=== PATIENT | male | born 1960 | race Caucasian/White ===

== ENCOUNTER 2018-01-15 14:26 | Inpatient (IN) | payer BC, SELFPAY ==
[2018-01-15] VITALS (9 sets, daily range): BP systolic 135–159; BP diastolic 87–97; PULSE 82–100; RESP 16–31; TEMP 36.8–38.9; O2SAT 97–100; BMI 32.5
--- NOTE | 2018-01-15 15:38 | DI.US.S_ITS ---
PROCEDURE: US PERIPH VENOUS LOW EXTREM LT INDICATIONS: swelling, hx of infections, large lymph node groin TECHNIQUE: Real-time imaging, as well as color and pulse Doppler interrogation, were performed of the lower extremity deep veins from the inguinal ligament to the popliteal fossa. COMPARISON: None. FINDINGS: The deep veins are normally compressible, and free of intraluminal thrombus. Color and pulse Doppler demonstrate normal phasic intraluminal flow. There is normal augmentation response to distal compression maneuver. IMPRESSION: Negative for deep venous thrombosis. Dictated by: Elmer Lay M.D. on 01/15/2018 at 16:00 Approved by: Elmer Lay M.D. on 01/15/2018 at 16:00
--- NOTE | 2018-01-15 15:41 | DI.RAD.S_ITS ---
PROCEDURE: XR CHEST 1V INDICATIONS: fever, chills, leg swelling TECHNIQUE: One view of the chest was acquired. COMPARISON: None. FINDINGS: Surgical changes and devices: None. Lungs and pleura: No pleural effusions or pneumothorax. Lungs are clear. Mediastinum: Mediastinal contours appear normal. Heart size is normal. A moderate hiatal hernia can be seen. Bones and chest wall: No suspicious bony lesions. Age-appropriate bony degenerative changes are seen. Overlying soft tissues appear unremarkable. IMPRESSION: No focal infiltrates can be seen. Moderate hiatal hernia incidentally noted. Dictated by: Elmer Lay M.D. on 01/15/2018 at 15:04 Approved by: Elmer Lay M.D. on 01/15/2018 at 15:04
--- NOTE | 2018-01-15 15:41 | ED.EXTPRO ---
HPI - Extremity Problem <Elise Gruber, - Last Filed: 01/16/18 21:21> General Chief complaint: Extremity Problem,Nontraumatic Stated complaint: has Mykel, alessandra complaints Time Seen by Provider: 01/15/18 15:31 Source: patient Mode of arrival: ambulatory Limitations: no limitations History of Present Illness HPI Narrative: This is a 58-year-old male comes to the emergency department with complaint of left lower extremity pain as well as enlarged nodes or bumps in the groin. Patient states he has had chronic swelling in the left leg. He states it is not worse than it normally is but he has been having some redness in the thigh. Patient states that he been having chills and feeling feverish for the last 2 or 3 days. He states he has been shaking in bed. He also has had hiccups for the last 3 days. They are better right now. He does not feel short of breath currently. He did feel short of breath when he was hiccuping all of the time. He has not been vomiting except he has been assisting himself to vomit to try to stop the hiccups about having his finger into his throat. Patient denies any abdominal pain but has had some diarrhea. He has not had any urinary symptoms. He has had similar symptoms in the past and states that he was told he had an infection in his blood before. He states he has had IV antibiotics in the past for these issues. He states typically it was cracks in his feet that would lead infection into his leg. States he has been told he does not very good blood flow in his leg. He takes medication for blood pressure on cleaning lisinopril and hydrochlorothiazide as well as atorvastatin. He denies any other medications. He has had his tonsils out but no other surgeries. He denies any allergies to medications. He does drink about a bottle of wine daily. And describes having prior hiccuping issues when he went on ?a [place]? patient divides his time between here and [place]. Related Data Home Medications Medication Instructions Recorded Confirmed atorvastatin 40 mg PO DAILY 01/15/18 01/15/18 cephalexin 1 dose PO QID 01/15/18 01/15/18 lisinopril 5 mg PO DAILY 01/15/18 01/15/18 Previous Rx's Medication Instructions Recorded hydrochlorothiazide 25 mg tablet 25 mg PO DAILY #60 tab 10/02/17 Allergies Allergy/AdvReac Type Severity Reaction Status Date / Time No Known Drug Allergies Allergy Verified 01/15/18 14:35 Review of Systems <Elise Gruber DO - Last Filed: 01/16/18 21:21> Review of Systems All systems reviewed & are unremarkable except as noted in HPI and below Constitutional Reports body ache(s), Reports chills, Reports fever(s) and Reports malaise Cardiovascular Denies chest pain, Reports diaphoresis, Reports edema (Both legs greater than left), Denies irregular heart rhythm, Denies lightheadedness, Denies palpitations, Denies dyspnea, Denies dyspnea on exertion and Denies orthopnea Respiratory Denies chest congestion, Denies cough, Denies dyspnea, Denies dyspnea on exertion, Denies wheezing and Reports other (Hiccups) Gastrointestinal Gastrointestinal: Denies abdominal pain, Denies change in bowel habits, Denies constipation, Reports diarrhea, Denies nausea and Denies vomiting Genitourinary Denies hematuria, Denies flank pain, Denies urinary incontinence and Denies urinary urgency Musculoskeletal Reports as per HPI, Denies joint swelling, Denies muscle cramps, Denies muscle weakness, Denies numbness, Denies tingling and Reports other (Enlarged lumps in left groin) Neurologic Denies numbness and Denies tingling Endocrine Denies palpitations Hematologic/Lymphatic Reports lymphadenopathy Allergic/Immunologic Denies wheezing Exam <Elise Gruber DO - Last Filed: 01/16/18 21:21> Narrative Exam Narrative: GENERAL: Alert and oriented x three, well-nourished male in moderate distress. Patient feels warm to the touch. HEENT: Head normocephalic, atraumatic, EOMI, pupils reactive, face symmetric, moist mucous membranes NECK: Supple, full range of motion CARDIOVASCULAR: Regular rate and rhythm without murmurs, rubs or gallops. RESPIRATORY: Breath sounds equal bilaterally, no wheezes rales or rhonchi. ABDOMEN: Soft, nontender. Normoactive bowel sounds all 4 quadrants. No guarding or rebound, rigidity, no mass : No CVA tenderness EXTREMITIES: Normal range of motion, no clubbing. Patient has left inguinal lymphadenopathy, it is nonfluctuant and nontender but I am able to palpate very easily large node greater than a cm. Patient also has swelling in the left lower extremity, it is nonpitting edema. He has erythema in the right groin and extending towards the lower leg. Patient what appear to be some chronic venous stasis changes of both lower extremities. His cap refill is less than 2 sec in both lower extremities. Patient has sensation to touch. He has full range of motion. Neurovascularly intact. Patient has no obvious cuts or lacerations but does have thickened hyperkeratotic changes between his toes and on his feet. NEUROLOGICAL: Cranial nerves II through XII grossly intact. Moving all extremities SKIN: Warm, dry, no petechiae, Initial Vital Signs Initial Vital Signs: Vital Signs Temperature 98.2 F 01/15/18 14:35 Pulse Rate 95 H 01/15/18 14:35 Respiratory Rate 18 01/15/18 14:35 Blood Pressure 137/91 H 01/15/18 14:35 Pulse Oximetry 100 01/15/18 14:35 <James Duron MD - Last Filed: 01/15/18 22:48> Initial Vital Signs Initial Vital Signs: Vital Signs Temperature 98.2 F 01/15/18 14:35 Pulse Rate 95 H 01/15/18 14:35 Respiratory Rate 18 01/15/18 14:35 Blood Pressure 137/91 H 01/15/18 14:35 Pulse Oximetry 100 01/15/18 14:35 Course <Elise Gruber DO - Last Filed: 01/16/18 21:21> Orders Ordered: ED Orders 01/17/18 05:30 Vancomycin Trough Urgent Acetaminophen (Tylenol) 650 mg PO Q6HR PRN PRN Reason: As Needed for Fever/Mild Pain Hydrocodone Bitart/Acetaminophen ([place] 5/325) 1 tab PO Q4HR PRN PRN Reason: Pain, Moderate (4-6) Al Hydrox/Mg Hydrox/Simethicone (Maalox Plus) 30 ml PO Q6HR PRN PRN Reason: Dyspepsia Last Admin: 01/16/18 08:13 Dose: 30 ml Admin: 01/15/18 21:04 Dose: 30 ml Atorvastatin Calcium (Lipitor) 40 mg PO DAILY [facility] Last Admin: 01/16/18 09:37 Dose: 40 mg Baclofen (Lioresal) 10 mg PO TID PRN PRN Reason: hiccups Last Admin: 01/16/18 20:30 Dose: 10 mg Admin: 01/16/18 12:45 Dose: 10 mg Enoxaparin Sodium (Lovenox) 40 mg SUBCUT DAILY [facility] Last Admin: 01/16/18 09:39 Dose: 40 mg Hydrochlorothiazide (Hydrochlorothiazide) 25 mg PO DAILY [facility] Last Admin: 01/16/18 09:42 Dose: 25 mg Vancomycin HCl 1,250 mg/ (Sodium Chloride) 250 mls @ 250 mls/hr IV Q12H [facility] Last Infusion: 01/16/18 19:10 Dose: 250 mls/hr Admin: 01/16/18 18:00 Dose: 250 mls/hr Infusion: 01/16/18 07:29 Dose: 0 mls/hr Admin: 01/16/18 05:31 Dose: 250 mls/hr Lisinopril (Zestril) 5 mg PO DAILY [facility] Last Admin: 01/16/18 09:46 Dose: 5 mg Ondansetron HCl (Zofran) 4 mg IV Q8HR PRN PRN Reason: Nausea And Vomiting Pot[facility] Admin: 01/16/18 09:37 Dose: 20 meq Ranitidine HCl (Zantac) 150 mg PO BID [facility] Last Admin: 01/16/18 20:30 Dose: 150 mg Admin: 01/16/18 12:45 Dose: 150 mg Sodium Chloride (Normal Saline 0.9% Flush) 10 ml IV BID [facility] Last Admin: 01/16/18 20:30 Dose: 10 ml Vancomycin HCl (Vancomycin Trough) 1 request MISC NOW ONE Stop: 01/17/18 05:31 Discontinued Medications Acetaminophen (Tylenol) 975 mg PO NOW ONE Stop: 01/15/18 19:07 Last Admin: 01/15/18 19:07 Dose: 975 mg Acetaminophen (Tylenol) 650 mg PO Q6HR PRN PRN Reason: As Needed for Fever/Mild Pain Piperacillin/Tazobactam/Dextrose (Zosyn) 4.5 gm in 100 mls @ 200 mls/hr IV NOW ONE Stop: 01/15/18 16:07 Last Infusion: 01/15/18 17:15 Dose: 0 mls/hr Admin: 01/15/18 16:45 Dose: 200 mls/hr Sodium Chloride (Normal Saline 0.9%) 2,993.7 mls @ 997.9 mls/hr 30 ml/kg infuse over 3 hr (2993.7 ml) IV CONT [facility] Last Infusion: 01/15/18 20:03 Dose: 0 mls/hr Infusion: 01/15/18 19:02 Dose: 997 mls/hr Infusion: 01/15/18 17:52 Dose: 997 mls/hr Admin: 01/15/18 16:45 Dose: 997 mls/hr Vancomycin HCl 1,500 mg/ (Sodium Chloride) 500 mls @ 333.333 mls/hr IV NOW ONE Stop: 01/15/18 17:01 Last Infusion: 01/15/18 20:06 Dose: 0 mls/hr Admin: 01/15/18 17:51 Dose: 333.333 mls/hr Piperacillin/Tazobactam/Dextrose (Zosyn) 3.375 gm in 50 mls @ 100 mls/hr IV NOW ONE Stop: 01/15/18 20:27 Last Admin: 01/15/18 20:30 Dose: Sodium Chloride (Normal Saline 0.9%) 1,000 mls @ 125 mls/hr IV CONT [facility] Last Admin: 01/15/18 22:32 Dose: Sodium Chloride (Normal Saline 0.9%) 1,000 mls @ 100 mls/hr IV CONT [facility] Last Admin: 01/16/18 08:17 Dose: 100 mls/hr Infusion: 01/16/18 06:45 Dose: 100 mls/hr Admin: 01/15/18 20:45 Dose: 100 mls/hr Influenza Virus Vaccine (Flu Vaccine) 0.5 ml IM .ONCE ONE Stop: 01/15/18 21:02 Last Admin: 01/15/18 21:21 Dose: Lorazepam (Ativan) 1 mg IV NOW ONE Stop: 01/15/18 18:11 Last Admin: 01/15/18 18:10 Dose: 1 mg Vancomycin HCl (Vancomycin Per Pharmacy) 1 request MISC NOW ONE Stop: 01/15/18 19:59 Last Admin: 01/15/18 20:45 Dose: 1 request Vital Signs - 8 hr 01/16/18 15:54 01/16/18 17:35 01/16/18 19:20 Temperature 99.2 F 99.2 F Pulse Rate 81 83 Respiratory Rate 18 18 Blood Pressure 142/83 H 144/87 H Pulse Oximetry 99 99 100 <James Duron MD - Last Filed: 01/15/18 22:48> Course Narrative: 18:10. 01/15/2018. The patient was initially evaluated by Dr. Gruber. I have accepted the patient in transition at change of shift. The patient presents with 2 days of fever, rigors and chills. He has erythema and discomfort to the left leg and left groin. He has a prior history of cellulitis. He is medicated for hyperlipidemia and hypertension. He denies having a primary care physician, telling me he uses [facility]. He likely has a significant history of alcohol consumption. He has a history of recurrent left leg cellulitis. Dr. Gruber has started him on Zosyn and Vancomycin for cellulitis of the left lower extremity. It is noted that he has an elevated WBC count, and elevated lactate, and a elevated procalcitonin. He has received IV fluid boluses, he remains normotensive. A repeat lactate has been ordered. Decision to Admit Date: 01/15/18 Decision to Admit time: 19:41 Orders Ordered: ED Orders 01/17/18 05:30 Vancomycin Trough Urgent Acetaminophen (Tylenol) 650 mg PO Q6HR PRN PRN Reason: As Needed for Fever/Mild Pain Hydrocodone Bitart/Acetaminophen ([place] 5/325) 1 tab PO Q4HR PRN PRN Reason: Pain, Moderate (4-6) Al Hydrox/Mg Hydrox/Simethicone (Maalox Plus) 30 ml PO Q6HR PRN PRN Reason: Dyspepsia Last Admin: 01/16/18 08:13 Dose: 30 ml Admin: 01/15/18 21:04 Dose: 30 ml Atorvastatin Calcium (Lipitor) 40 mg PO DAILY [facility] Last Admin: 01/16/18 09:37 Dose: 40 mg Baclofen (Lioresal) 10 mg PO TID PRN PRN Reason: hiccups Last Admin: 01/16/18 20:30 Dose: 10 mg Admin: 01/16/18 12:45 Dose: 10 mg Enoxaparin Sodium (Lovenox) 40 mg SUBCUT DAILY [facility] Last Admin: 01/16/18 09:39 Dose: 40 mg Hydrochlorothiazide (Hydrochlorothiazide) 25 mg PO DAILY [facility] Last Admin: 01/16/18 09:42 Dose: 25 mg Vancomycin HCl 1,250 mg/ (Sodium Chloride) 250 mls @ 250 mls/hr IV Q12H [facility] Last Infusion: 01/16/18 19:10 Dose: 250 mls/hr Admin: 01/16/18 18:00 Dose: 250 mls/hr Infusion: 01/16/18 07:29 Dose: 0 mls/hr Admin: 01/16/18 05:31 Dose: 250 mls/hr Lisinopril (Zestril) 5 mg PO DAILY [facility] Last Admin: 01/16/18 09:46 Dose: 5 mg Ondansetron HCl (Zofran) 4 mg IV Q8HR PRN PRN Reason: Nausea And Vomiting Potassium Chloride (Klor-Con M20) 20 meq PO DAILYCC [facility] Last Admin: 01/16/18 09:37 Dose: 20 meq Ranitidine HCl (Zantac) 150 mg PO BID [facility] Last Admin: 01/16/18 20:30 Dose: 150 mg Admin: 01/16/18 12:45 Dose: 150 mg Sodium Chloride (Normal Saline 0.9% Flush) 10 ml IV BID [facility] Last Admin: 01/16/18 20:30 Dose: 10 ml Vancomycin HCl (Vancomycin Trough) 1 request MISC NOW ONE Stop: 01/17/18 05:31 Discontinued Medications Acetaminophen (Tylenol) 975 mg PO NOW ONE Stop: 01/15/18 19:07 Last Admin: 01/15/18 19:07 Dose: 975 mg Acetaminophen (Tylenol) 650 mg PO Q6HR PRN PRN Reason: As Needed for Fever/Mild Pain Piperacillin/Tazobactam/Dextrose (Zosyn) 4.5 gm in 100 mls @ 200 mls/hr IV NOW ONE Stop: 01/15/18 16:07 Last Infusion: 01/15/18 17:15 Dose: 0 mls/hr Admin: 01/15/18 16:45 Dose: 200 mls/hr Sodium Chloride (Normal Saline 0.9%) 2,993.7 mls @ 997.9 mls/hr 30 ml/kg infuse over 3 hr (2993.7 ml) IV CONT [facility] Last Infusion: 01/15/18 20:03 Dose: 0 mls/hr Infusion: 01/15/18 19:02 Dose: 997 mls/hr Infusion: 01/15/18 17:52 Dose: 997 mls/hr Admin: 01/15/18 16:45 Dose: 997 mls/hr Vancomycin HCl 1,500 mg/ (Sodium Chloride) 500 mls @ 333.333 mls/hr IV NOW ONE Stop: 01/15/18 17:01 Last Infusion: 01/15/18 20:06 Dose: 0 mls/hr Admin: 01/15/18 17:51 Dose: 333.333 mls/hr Piperacillin/Tazobactam/Dextrose (Zosyn) 3.375 gm in 50 mls @ 100 mls/hr IV NOW ONE Stop: 01/15/18 20:27 Last Admin: 01/15/18 20:30 Dose: Sodium Chloride (Normal Saline 0.9%) 1,000 mls @ 125 mls/hr IV CONT [facility] Last Admin: 01/15/18 22:32 Dose: Sodium Chloride (Normal Saline 0.9%) 1,000 mls @ 100 mls/hr IV CONT [facility] Last Admin: 01/16/18 08:17 Dose: 100 mls/hr Infusion: 01/16/18 06:45 Dose: 100 mls/hr Admin: 01/15/18 20:45 Dose: 100 mls/hr Influenza Virus Vaccine (Flu Vaccine) 0.5 ml IM .ONCE ONE Stop: 01/15/18 21:02 Last Admin: 01/15/18 21:21 Dose: Lorazepam (Ativan) 1 mg IV NOW ONE Stop: 01/15/18 18:11 Last Admin: 01/15/18 18:10 Dose: 1 mg Vancomycin HCl (Vancomycin Per Pharmacy) 1 request MISC NOW ONE Stop: 01/15/18 19:59 Last Admin: 01/15/18 20:45 Dose: 1 request Vital Signs - 8 hr 01/16/18 15:54 01/16/18 17:35 01/16/18 19:20 Temperature 99.2 F 99.2 F Pulse Rate 81 83 Respiratory Rate 18 18 Blood Pressure 142/83 H 144/87 H Pulse Oximetry 99 99 100 MDM - Extremity (Nontraumatic) <Elise Gruber, DO - Last Filed: 01/16/18 21:21> Lab Data Attestation: I reviewed the patient's lab results. Result diagrams: 01/16/18 05:30 01/16/18 05:30 Lab Results 01/15/18 01/15/18 01/15/18 Range/Units 16:10 16:10 16:10 WBC 14.4 H (4.5-11.0) X10^3/uL RBC 4.61 (4.5-5.9) X10^6/uL Hgb 15.4 (13.5-17.5) g/dL Hct 43.4 (41-53) % MCV 94.1 (80-100) fL MCH 33.4 (26-34) PG MCHC 35.5 (30-36) % RDW 12.2 (11.6-14.8) % Plt Count 204 (150-400) X10^3/uL Neut % (Auto) 89.3 H (50-75) % Lymph % (Auto) 5.2 L (25-40) % [place] % (Auto) 4.8 (3-14) % Eos % (Auto) 0.3 L (2-4) % Baso % (Auto) 0.4 (0-2) % Neut # (Auto) 44817 H (9958-3247) /uL PT 14.3 H (10.1-12.7) SECONDS INR 1.3 (0.9-1.3) APTT 33 (26.4-36.2) SECONDS Sodium (137-145) mmol/L Potassium (3.4-5.1) mmol/L Chloride (98-107) mmol/L Carbon Dioxide (22-32) mmol/L BUN (9-20) mg/dL Creatinine (0.66-1.25) mg/dL Estimated GFR (>60) mL/min BUN/Creatinine Ratio (6-22) Glucose (70-100) mg/dL Lactate (0.7-2.1) mmol/L Calcium (8.4-10.2) mg/dL Total Bilirubin (0.2-1.3) mg/dL AST (17-59) IU/L ALT (21-72) IU/L Alkaline Phosphatase (38-126) U/L Total Protein (6.3-8.2) g/dL Albumin (3.5-5.0) g/dL Globulin (1.7-4.1) g/dL Albumin/Globulin Ratio (1.0-2.8) Procalcitonin 39.72 H (<0.5) ng/mL Urine RBC (0-5/HPF) Urine WBC (0-5/HPF) Ur Squamous Epith Cells Urine Bacteria (None) Ur Culture Indicated? Micro UA Comment 01/15/18 01/15/18 01/15/18 Range/Units 16:10 16:10 16:31 WBC (4.5-11.0) X10^3/uL RBC (4.5-5.9) X10^6/uL Hgb (13.5-17.5) g/dL Hct (41-53) % MCV (80-100) fL MCH (26-34) PG MCHC (30-36) % RDW (11.6-14.8) % Plt Count (150-400) X10^3/uL Neut % (Auto) (50-75) % Lymph % (Auto) (25-40) % [place] % (Auto) (3-14) % Eos % (Auto) (2-4) % Baso % (Auto) (0-2) % Neut # (Auto) (9009-2201) /uL PT (10.1-12.7) SECONDS INR (0.9-1.3) APTT (26.4-36.2) SECONDS Sodium 130 L (137-145) mmol/L Potassium 3.3 L (3.4-5.1) mmol/L Chloride 93 L (98-107) mmol/L Carbon Dioxide 20 L (22-32) mmol/L BUN 27 H (9-20) mg/dL Creatinine 1.20 (0.66-1.25) mg/dL Estimated GFR > 60.0 (>60) mL/min BUN/Creatinine Ratio 22.5 H (6-22) Glucose 103 H (70-100) mg/dL Lactate 2.2 H (0.7-2.1) mmol/L Calcium 9.3 (8.4-10.2) mg/dL Total Bilirubin 1.4 H (0.2-1.3) mg/dL AST 64 H (17-59) IU/L ALT 74 H (21-72) IU/L Alkaline Phosphatase 67 (38-126) U/L Total Protein 7.9 (6.3-8.2) g/dL Albumin 4.5 (3.5-5.0) g/dL Globulin 3.4 (1.7-4.1) g/dL Albumin/Globulin Ratio 1.3 (1.0-2.8) Procalcitonin (<0.5) ng/mL Urine RBC None seen (0-5/HPF) Urine WBC 0-1/hpf (0-5/HPF) Ur Squamous Epith Cells 0-1 /hpf Urine Bacteria None seen (None) Ur Culture Indicated? Cult not indicated Micro UA Comment Not Reportable 01/15/18 01/15/18 01/16/18 Range/Units 18:42 23:10 05:30 WBC 10.8 (4.5-11.0) X10^3/uL RBC 3.93 L (4.5-5.9) X10^6/uL Hgb 13.2 L (13.5-17.5) g/dL Hct 37.4 L (41-53) % MCV 95.0 (80-100) fL MCH 33.5 (26-34) PG MCHC 35.2 (30-36) % RDW 12.4 (11.6-14.8) % Plt Count 168 (150-400) X10^3/uL Neut % (Auto) 86.9 H (50-75) % Lymph % (Auto) 5.5 L (25-40) % [place] % (Auto) 7.1 (3-14) % Eos % (Auto) 0.2 L (2-4) % Baso % (Auto) 0.3 (0-2) % Neut # (Auto) 9400 H (2855-8458) /uL PT (10.1-12.7) SECONDS INR (0.9-1.3) APTT (26.4-36.2) SECONDS Sodium (137-145) mmol/L Potassium (3.4-5.1) mmol/L Chloride (98-107) mmol/L Carbon Dioxide (22-32) mmol/L BUN (9-20) mg/dL Creatinine (0.66-1.25) mg/dL Estimated GFR (>60) mL/min BUN/Creatinine Ratio (6-22) Glucose (70-100) mg/dL Lactate 2.2 H 0.8 (0.7-2.1) mmol/L Calcium (8.4-10.2) mg/dL Total Bilirubin (0.2-1.3) mg/dL AST (17-59) IU/L ALT (21-72) IU/L Alkaline Phosphatase (38-126) U/L Total Protein (6.3-8.2) g/dL Albumin (3.5-5.0) g/dL Globulin (1.7-4.1) g/dL Albumin/Globulin Ratio (1.0-2.8) Procalcitonin (<0.5) ng/mL Urine RBC (0-5/HPF) Urine WBC (0-5/HPF) Ur Squamous Epith Cells Urine Bacteria (None) Ur Culture Indicated? Micro UA Comment 01/16/18 Range/Units 05:30 WBC (4.5-11.0) X10^3/uL RBC (4.5-5.9) X10^6/uL Hgb (13.5-17.5) g/dL Hct (41-53) % MCV (80-100) fL MCH (26-34) PG MCHC (30-36) % RDW (11.6-14.8) % Plt Count (150-400) X10^3/uL Neut % (Auto) (50-75) % Lymph % (Auto) (25-40) % [place] % (Auto) (3-14) % Eos % (Auto) (2-4) % Baso % (Auto) (0-2) % Neut # (Auto) (4136-6666) /uL PT (10.1-12.7) SECONDS INR (0.9-1.3) APTT (26.4-36.2) SECONDS Sodium 139 (137-145) mmol/L Potassium 3.4 (3.4-5.1) mmol/L Chloride 102 (98-107) mmol/L Carbon Dioxide 24 (22-32) mmol/L BUN 19 (9-20) mg/dL Creatinine 1.00 (0.66-1.25) mg/dL Estimated GFR > 60.0 (>60) mL/min BUN/Creatinine Ratio 19.0 (6-22) Glucose 85 (70-100) mg/dL Lactate (0.7-2.1) mmol/L Calcium 7.9 L (8.4-10.2) mg/dL Total Bilirubin 0.6 (0.2-1.3) mg/dL AST 41 (17-59) IU/L ALT 60 (21-72) IU/L Alkaline Phosphatase 52 (38-126) U/L Total Protein 6.3 (6.3-8.2) g/dL Albumin 3.5 (3.5-5.0) g/dL Globulin 2.8 (1.7-4.1) g/dL Albumin/Globulin Ratio 1.3 (1.0-2.8) Procalcitonin (<0.5) ng/mL Urine RBC (0-5/HPF) Urine WBC (0-5/HPF) Ur Squamous Epith Cells Urine Bacteria (None) Ur Culture Indicated? Micro UA Comment Urine Dip Bedside Urine Glucose Negative Bedside Urine Bilirubin - Negative Bedside Urine Ketone ++ 40 Urine Specific [place] 1.015 Bedside Urine Occult Blood - Negative Bedside Urine pH 7.5 Bedside Urine Protein +/- 15 Bedside Urine Urobilinogen - Negative Bedside Urine Nitrite - Negative Bedside Urine Leukocytes - Negative Esterase Imaging Data DVT US: Radiologist's impression: [place] [address] Ultrasound Report Signed Patient: Roger Sanchez [facility]#: [id number] : 1960Acct:[id number] Age/Sex: 58 / MDate of Service: 01/15/18 Loc: ED Accession Number: [id number] Procedure: US perip venous low extrem lt Ordering Provider: Elise Gruber D.O. PROCEDURE: US PERIP VENOUS LOW EXTREM LT INDICATIONS: swelling, hx of infections, large lymph node groin TECHNIQUE: Real-time imaging, as well as color and pulse Doppler interrogation, were performed of the lower extremity deep veins from the inguinal ligament to the popliteal fossa. COMPARISON: None. FINDINGS: The deep veins are normally compressible, and free of intraluminal thrombus. Color and pulse Doppler demonstrate normal phasic intraluminal flow. There is normal augmentation response to distal compression maneuver. IMPRESSION: Negative for deep venous thrombosis. Dictated by: Elmer Lay M.D. on 01/15/2018 at 16:00 Approved by: Elmer Lay M.D. on 01/15/2018 at 16:00 [facility] Narrative Medical decision making narrative: Patient does have what appears to be a cellulitis in the right groin and lower extremity. He has not had a fever here, he is slightly tachycardic 100. His white count is elevated at 14. Patient has an elevated lactate at 2.2. His procalcitonin is elevated at 39. Patient has had similar symptoms in the past, he started IV antibiotics including Zosyn and Vanco. Spoke with Dr. Browne who feels the patient likely does not need admission at this time and asked that he follow up outpatient. At this time plan for repeat lactate 2 hr from initial. The complete antibiotics and re-evaluate. Dr. Duron is the oncoming evening physician and patient was signed out to him with pending lactate and IV antibiotics running. Discussed that if he has any concerns would recontact hospitalist about patient staying although patient is open to return for recheck tomorrow also. <James Duron MD - Last Filed: 01/15/18 22:48> Lab Data Lab Results 01/15/18 01/15/18 01/15/18 Range/Units 16:10 16:10 16:10 WBC 14.4 H (4.5-11.0) X10^3/uL RBC 4.61 (4.5-5.9) X10^6/uL Hgb 15.4 (13.5-17.5) g/dL Hct 43.4 (41-53) % MCV 94.1 (80-100) fL MCH 33.4 (26-34) PG MCHC 35.5 (30-36) % RDW 12.2 (11.6-14.8) % Plt Count 204 (150-400) X10^3/uL Neut % (Auto) 89.3 H (50-75) % Lymph % (Auto) 5.2 L (25-40) % [place] % (Auto) 4.8 (3-14) % Eos % (Auto) 0.3 L (2-4) % Baso % (Auto) 0.4 (0-2) % Neut # (Auto) 20601 H (9963-7821) /uL PT 14.3 H (10.1-12.7) SECONDS INR 1.3 (0.9-1.3) APTT 33 (26.4-36.2) SECONDS Sodium (137-145) mmol/L Potassium (3.4-5.1) mmol/L Chloride (98-107) mmol/L Carbon Dioxide (22-32) mmol/L BUN (9-20) mg/dL Creatinine (0.66-1.25) mg/dL Estimated GFR (>60) mL/min BUN/Creatinine Ratio (6-22) Glucose (70-100) mg/dL Lactate (0.7-2.1) mmol/L Calcium (8.4-10.2) mg/dL Total Bilirubin (0.2-1.3) mg/dL AST (17-59) IU/L ALT (21-72) IU/L Alkaline Phosphatase (38-126) U/L Total Protein (6.3-8.2) g/dL Albumin (3.5-5.0) g/dL Globulin (1.7-4.1) g/dL Albumin/Globulin Ratio (1.0-2.8) Procalcitonin 39.72 H (<0.5) ng/mL Urine RBC (0-5/HPF) Urine WBC (0-5/HPF) Ur Squamous Epith Cells Urine Bacteria (None) Ur Culture Indicated? Micro UA Comment 01/15/18 01/15/18 01/15/18 Range/Units 16:10 16:10 16:31 WBC (4.5-11.0) X10^3/uL RBC (4.5-5.9) X10^6/uL Hgb (13.5-17.5) g/dL Hct (41-53) % MCV (80-100) fL MCH (26-34) PG MCHC (30-36) % RDW (11.6-14.8) % Plt Count (150-400) X10^3/uL Neut % (Auto) (50-75) % Lymph % (Auto) (25-40) % [place] % (Auto) (3-14) % Eos % (Auto) (2-4) % Baso % (Auto) (0-2) % Neut # (Auto) (6548-9837) /uL PT (10.1-12.7) SECONDS INR (0.9-1.3) APTT (26.4-36.2) SECONDS Sodium 130 L (137-145) mmol/L Potassium 3.3 L (3.4-5.1) mmol/L Chloride 93 L (98-107) mmol/L Carbon Dioxide 20 L (22-32) mmol/L BUN 27 H (9-20) mg/dL Creatinine 1.20 (0.66-1.25) mg/dL Estimated GFR > 60.0 (>60) mL/min BUN/Creatinine Ratio 22.5 H (6-22) Glucose 103 H (70-100) mg/dL Lactate 2.2 H (0.7-2.1) mmol/L Calcium 9.3 (8.4-10.2) mg/dL Total Bilirubin 1.4 H (0.2-1.3) mg/dL AST 64 H (17-59) IU/L ALT 74 H (21-72) IU/L Alkaline Phosphatase 67 (38-126) U/L Total Protein 7.9 (6.3-8.2) g/dL Albumin 4.5 (3.5-5.0) g/dL Globulin 3.4 (1.7-4.1) g/dL Albumin/Globulin Ratio 1.3 (1.0-2.8) Procalcitonin (<0.5) ng/mL Urine RBC None seen (0-5/HPF) Urine WBC 0-1/hpf (0-5/HPF) Ur Squamous Epith Cells 0-1 /hpf Urine Bacteria None seen (None) Ur Culture Indicated? Cult not indicated Micro UA Comment Not Reportable 01/15/18 01/15/18 01/16/18 Range/Units 18:42 23:10 05:30 WBC 10.8 (4.5-11.0) X10^3/uL RBC 3.93 L (4.5-5.9) X10^6/uL Hgb 13.2 L (13.5-17.5) g/dL Hct 37.4 L (41-53) % MCV 95.0 (80-100) fL MCH 33.5 (26-34) PG MCHC 35.2 (30-36) % RDW 12.4 (11.6-14.8) % Plt Count 168 (150-400) X10^3/uL Neut % (Auto) 86.9 H (50-75) % Lymph % (Auto) 5.5 L (25-40) % [place] % (Auto) 7.1 (3-14) % Eos % (Auto) 0.2 L (2-4) % Baso % (Auto) 0.3 (0-2) % Neut # (Auto) 9400 H (1198-8173) /uL PT (10.1-12.7) SECONDS INR (0.9-1.3) APTT (26.4-36.2) SECONDS Sodium (137-145) mmol/L Potassium (3.4-5.1) mmol/L Chloride (98-107) mmol/L Carbon Dioxide (22-32) mmol/L BUN (9-20) mg/dL Creatinine (0.66-1.25) mg/dL Estimated GFR (>60) mL/min BUN/Creatinine Ratio (6-22) Glucose (70-100) mg/dL Lactate 2.2 H 0.8 (0.7-2.1) mmol/L Calcium (8.4-10.2) mg/dL Total Bilirubin (0.2-1.3) mg/dL AST (17-59) IU/L ALT (21-72) IU/L Alkaline Phosphatase (38-126) U/L Total Protein (6.3-8.2) g/dL Albumin (3.5-5.0) g/dL Globulin (1.7-4.1) g/dL Albumin/Globulin Ratio (1.0-2.8) Procalcitonin (<0.5) ng/mL Urine RBC (0-5/HPF) Urine WBC (0-5/HPF) Ur Squamous Epith Cells Urine Bacteria (None) Ur Culture Indicated? Micro UA Comment 01/16/18 Range/Units 05:30 WBC (4.5-11.0) X10^3/uL RBC (4.5-5.9) X10^6/uL Hgb (13.5-17.5) g/dL Hct (41-53) % MCV (80-100) fL MCH (26-34) PG MCHC (30-36) % RDW (11.6-14.8) % Plt Count (150-400) X10^3/uL Neut % (Auto) (50-75) % Lymph % (Auto) (25-40) % [place] % (Auto) (3-14) % Eos % (Auto) (2-4) % Baso % (Auto) (0-2) % Neut # (Auto) (4333-2440) /uL PT (10.1-12.7) SECONDS INR (0.9-1.3) APTT (26.4-36.2) SECONDS Sodium 139 (137-145) mmol/L Potassium 3.4 (3.4-5.1) mmol/L Chloride 102 (98-107) mmol/L Carbon Dioxide 24 (22-32) mmol/L BUN 19 (9-20) mg/dL Creatinine 1.00 (0.66-1.25) mg/dL Estimated GFR > 60.0 (>60) mL/min BUN/Creatinine Ratio 19.0 (6-22) Glucose 85 (70-100) mg/dL Lactate (0.7-2.1) mmol/L Calcium 7.9 L (8.4-10.2) mg/dL Total Bilirubin 0.6 (0.2-1.3) mg/dL AST 41 (17-59) IU/L ALT 60 (21-72) IU/L Alkaline Phosphatase 52 (38-126) U/L Total Protein 6.3 (6.3-8.2) g/dL Albumin 3.5 (3.5-5.0) g/dL Globulin 2.8 (1.7-4.1) g/dL Albumin/Globulin Ratio 1.3 (1.0-2.8) Procalcitonin (<0.5) ng/mL Urine RBC (0-5/HPF) Urine WBC (0-5/HPF) Ur Squamous Epith Cells Urine Bacteria (None) Ur Culture Indicated? Micro UA Comment Urine Dip Bedside Urine Glucose Negative Bedside Urine Bilirubin - Negative Bedside Urine Ketone ++ 40 Urine Specific [place] 1.015 Bedside Urine Occult Blood - Negative Bedside Urine pH 7.5 Bedside Urine Protein +/- 15 Bedside Urine Urobilinogen - Negative Bedside Urine Nitrite - Negative Bedside Urine Leukocytes - Negative Esterase Imaging Data DVT US: Radiologist's impression: PROCEDURE: US PERIPH VENOUS LOW EXTREM LT INDICATIONS: swelling, hx of infections, large lymph node groin TECHNIQUE: Real-time imaging, as well as color and pulse Doppler interrogation, were performed of the lower extremity deep veins from the inguinal ligament to the popliteal fossa. COMPARISON: None. FINDINGS: The deep veins are normally compressible, and free of intraluminal thrombus. Color and pulse Doppler demonstrate normal phasic intraluminal flow. There is normal augmentation response to distal compression maneuver. IMPRESSION: Negative for deep venous thrombosis. Dictated by: Elmer Lay M.D. on 01/15/2018 at 16:00 Approved by: Elmer Lay M.D. on 01/15/2018 at 16:00 Chest x-ray: Radiologist's impression: Normal MDM Narrative Medical decision making narrative: Accept the patient transfer from Dr. Gruber. The patient is alert and oriented. His vitals are stable. He has an extensive cellulitis to the left leg. There is no evidence of DVT by ultrasound. Labs are consistent with sepsis. He is not in shock. IV antibiotics have been initiated, he is receiving Zosyn and vancomycin. An appropriate fluid bolus has been initiated. The lactate was repeated prior to admission, and is unchanged at 2.2. There is a significant elevation to the procalcitonin. Blood cultures have been drawn. I discussed the clinical and lab findings with the hospitalist, Dr. Mei. The patient will be admitted for ongoing IV antibiotic therapy. Discharge Plan Departure Patient Disposition: Admitted As Inpatient Clinical Impression: Cellulitis of left leg, Sepsis Discharge Date/Time: 01/15/18 20:31 Interventions: ED Discharge Assessment Last Done: 01/15/18 20:30 Admit Date/Time: 01/15/18 19:47 Admit Provider: Danile Mei
[2018-01-15 16:20] LABS: Add Manual Diff / Slide Review NO; Basophils Percent Auto 0.4 % (0-2); Eosinophils Percent Auto 0.3 % (2-4); Hematocrit 43.4 % (41-53); Hemoglobin 15.4 g/dL (13.5-17.5); Lymphocytes Percent Auto 5.2 % (25-40); Mean Corpuscular HGB Conc 35.5 % (30-36); Mean Corpuscular Hemoglobin 33.4 PG (26-34); Mean Corpuscular Volume 94.1 fL (80-100); Monocytes Percent Auto 4.8 % (3-14); Neutrophils Absolute Auto 12900 /uL (3000-5900); Neutrophils Percent Auto 89.3 % (50-75); Platelet Count 204 X10^3/uL (150-400); Red Blood Cell Count 4.61 X10^6/uL (4.5-5.9); Red Cell Distribution Width 12.2 % (11.6-14.8); White Blood Cell Count 14.4 X10^3/uL (4.5-11.0)
[2018-01-15 16:27] LABS: INR 1.3 (0.9-1.3); Prothrombin Time 14.3 SECONDS (10.1-12.7)
[2018-01-15 16:29] LABS: PTT Partial Thromboplastin Tim 33 SECONDS (26.4-36.2)
[2018-01-15 16:32] LABS: Bacteria Urine None Seen; RBC Urine None Seen (0-5/HPF)
[2018-01-15 16:36] LABS: Lactate (Lactic Acid) 2.2 mmol/L (0.7-2.1)
[2018-01-15 16:37] LABS: Alanine Aminotransferase 74 IU/L (21-72); Albumin 4.5 g/dL (3.5-5.0); Albumin Globulin Ratio 1.3 (1.0-2.8); Alkaline Phosphatase 67 U/L (38-126); Aspartate Aminotransferase 64 IU/L (17-59); BUN Creatinine Ratio 22.5 (6-22); Bilirubin Total 1.4 mg/dL (0.2-1.3); Blood Urea Nitrogen 27 mg/dL (9-20); Calcium 9.3 mg/dL (8.4-10.2); Carbon Dioxide 20 mmol/L (22-32); Chloride 93 mmol/L (98-107); Estimated Glomerular Filt Rate > 60.0 mL/min (>60); Globulin 3.4 g/dL (1.7-4.1); Glucose 103 mg/dL (70-100); HEMOLYSIS 29 (0-50); Potassium 3.3 mmol/L (3.4-5.1); Sodium 130 mmol/L (137-145); Total Protein 7.9 g/dL (6.3-8.2)
[2018-01-15 16:40] LABS: WBC Urine 0-1/HPF (0-5/HPF)
[2018-01-15 16:41] LABS: Culture Indicated Urine Cult Not Indicated; Squamous Epithelial Cell Urine 0-1 /HPF
[2018-01-15] MEDS: SODIUM CHLORIDE 0.9% 2,993.7 ML 997 ML IV (16:45)
[2018-01-15] MEDS: PIPERACILLIN-TAZO 4.5 GM/100 ML FROZ.PIGGY IV (16:45)
[2018-01-15 17:01] LABS: Procalcitonin 39.72 ng/mL (<0.5)
--- NOTE | 2018-01-15 17:02 | PC.NURSE ---
pt reports, left lower leg redness and swelling onset sunday with fever and chills, pt has been taking tylenol and lots of water. sxs for 3 days , pt has been taking cephalexin four time a day for the last 3 days, cephalexin was from significant other) pt also developed hiccups, at times with self induced vomiting with some relief. also pt recieved lorazepam able to take a nap for one hour. pt states, lower leg actually is better today, pt are able to ambulate.
--- NOTE | 2018-01-15 17:06 | PC.NURSE ---
left lower leg edematous and redness from the thigh down, distal toes, looks cyanotic, pt able to wiggle toes and denies numbness and tingling.
[2018-01-15] MEDS: VANCOMYCIN 1,500 MG in SODIUM CHLORIDE 0.9% 500 ML 333.333 ML IV (17:51)
--- NOTE | 2018-01-15 17:53 | PC.NURSE ---
water and gets better, then back to supine position.
[2018-01-15] MEDS: LORazepam 2 MG/ML SYRINGE 1 MG IV (18:10)
--- NOTE | 2018-01-15 18:53 | PC.NURSE ---
guided by ultrasound, tolerated well.
[2018-01-15 19:05] LABS: Lactate (Lactic Acid) 2.2 mmol/L (0.7-2.1)
[2018-01-15] MEDS: ACETAMINOPHEN 325 MG TABLET 975 MG PO (19:07)
[2018-01-15 20:18] LABS: Reflexed Lactate in 2 Hours Y
--- NOTE | 2018-01-15 20:22 | PM.HP.1 ---
History of Present Illness Date Patient Seen: 01/15/18 Time Patient Seen: 20:23 Chief complaint: has PCarol, mulitple complaints Narrative: This is a 58-year-old male presents with 2 day history of red swollen left leg accompanied by fever chills rigors. Symptoms started on Sunday and the cellulitis has progressed he has been taking some oral antibiotic at home that his spouse gave him that she used previously. This has not helped the infections gotten worse. He does have a previous history of similar presentation several years ago. Patient History Medical History Dyslipidemia (Acute) Hypertension (Acute) Surgical History History of tonsillectomy (Acute) Family & Social History Safety & Behavioral: Feels Safe in Current Yes Environment Tobacco & Substance use: Smoking Status Never smoker alcohol intake current alcohol intake frequency 3 or more drinks per day Substance Use Type does not use Meds Home Medications Medication Instructions Recorded Confirmed Type hydrochlorothiazide 25 mg tablet 25 mg PO DAILY #60 tab 10/02/17 01/15/18 Rx atorvastatin 40 mg PO DAILY 01/15/18 01/15/18 History cephalexin 1 dose PO QID 01/15/18 01/15/18 History lisinopril 5 mg PO DAILY 01/15/18 01/15/18 History Allergies Allergy/AdvReac Type Severity Reaction Status Date / Time No Known Drug Allergies Allergy Verified 01/15/18 14:35 Review of Systems Constitutional Constitutional: Reports body ache(s), Reports chills, Reports fever(s) and Reports malaise Eyes Eyes: Reports system reviewed; no additional complaints, except as documented ENT Ears, Nose, Mouth, and Throat: Yes system reviewed; no additional complaints, except as documented Cardiovascular Cardiovascular: Denies chest pain and Denies shortness of breath with activity Respiratory Respiratory: Denies chest congestion, Denies cough and Denies dyspnea on exertion Gastrointestinal Gastrointestinal: Reports system reviewed and no additional complaints, except as documented Genitourinary Genitourinary: Reports system reviewed and no additional complaints, except as documented Musculoskeletal Musculoskeletal: Reports system reviewed; no additional complaints, except as documented Integumentary/Breasts Skin/Breast: Reports rash and Reports skin swelling Neurologic Neurologic: Reports system reviewed and no additional complaints, except as documented Psychiatric Psychiatric: Reports system reviewed and no additional complaints, except as documented Endocrine Endocrine: Reports system reviewed and no additional complaints, except as documented Hematologic/Lymphatic Hematologic/Lymphatic: Reports lymphadenopathy Allergic/Immunologic Allergic/Immunologic: Reports system reviewed and no additional complaints, except as documented Exam Vital Signs (past 8 hours): - 01/15/18 14:35 01/15/18 16:45 01/15/18 17:54 Temperature 98.2 F 98.9 F 102.1 F H Pulse Rate 95 H 100 H 93 H Respiratory Rate 18 20 31 H Blood Pressure 137/91 H Blood Pressure [Right Arm] 150/96 H 135/88 Pulse Oximetry 100 100 100 01/15/18 18:59 01/15/18 20:12 01/15/18 20:14 Temperature 99.6 F 99.6 F Pulse Rate 92 H 86 Respiratory Rate 21 18 Blood Pressure Blood Pressure [Right Arm] 152/92 H 146/87 H Pulse Oximetry 100 98 Oxygen Delivery Method Room Air Objective Labs Result Diagrams: 01/15/18 16:10 01/15/18 16:10 Labs: Laboratory Results - last 24 hr 01/15/18 01/15/18 01/15/18 16:10 16:10 16:10 WBC 14.4 H RBC 4.61 Hgb 15.4 Hct 43.4 MCV 94.1 MCH 33.4 MCHC 35.5 RDW 12.2 Plt Count 204 Neut % (Auto) 89.3 H Lymph % (Auto) 5.2 L [place] % (Auto) 4.8 Eos % (Auto) 0.3 L Baso % (Auto) 0.4 Neut # (Auto) 99946 H PT 14.3 H INR 1.3 APTT 33 Sodium Potassium Chloride Carbon Dioxide BUN Creatinine Estimated GFR BUN/Creatinine Ratio Glucose Lactate Calcium Total Bilirubin AST ALT Alkaline Phosphatase Total Protein Albumin Globulin Albumin/Globulin Ratio Procalcitonin 39.72 H Urine RBC Urine WBC Ur Squamous Epith Cells Urine Bacteria Ur Culture Indicated? Micro UA Comment 01/15/18 01/15/18 01/15/18 16:10 16:10 16:31 WBC RBC Hgb Hct MCV MCH MCHC RDW Plt Count Neut % (Auto) Lymph % (Auto) [place] % (Auto) Eos % (Auto) Baso % (Auto) Neut # (Auto) PT INR APTT Sodium 130 L Potassium 3.3 L Chloride 93 L Carbon Dioxide 20 L BUN 27 H Creatinine 1.20 Estimated GFR > 60.0 BUN/Creatinine Ratio 22.5 H Glucose 103 H Lactate 2.2 H Calcium 9.3 Total Bilirubin 1.4 H AST 64 H ALT 74 H Alkaline Phosphatase 67 Total Protein 7.9 Albumin 4.5 Globulin 3.4 Albumin/Globulin Ratio 1.3 Procalcitonin Urine RBC None seen Urine WBC 0-1/hpf Ur Squamous Epith Cells 0-1 /hpf Urine Bacteria None seen Ur Culture Indicated? Cult not indicated Micro UA Comment Not Reportable 01/15/18 18:42 WBC RBC Hgb Hct MCV MCH MCHC RDW Plt Count Neut % (Auto) Lymph % (Auto) [place] % (Auto) Eos % (Auto) Baso % (Auto) Neut # (Auto) PT INR APTT Sodium Potassium Chloride Carbon Dioxide BUN Creatinine Estimated GFR BUN/Creatinine Ratio Glucose Lactate 2.2 H Calcium Total Bilirubin AST ALT Alkaline Phosphatase Total Protein Albumin Globulin Albumin/Globulin Ratio Procalcitonin Urine RBC Urine WBC Ur Squamous Epith Cells Urine Bacteria Ur Culture Indicated? Micro UA Comment Assessment & Plan Plan: Assessment/Plan Narrative: One. Cellulitis rather extensive with sepsis. He has elevated white count temperature he has elevated bilirubin elevated procalcitonin and elevated lactate level. No hypotension. Tachycardia is present. He has very extensive cellulitis despite outpatient treatment with antibiotic. Patient will be admitted to the hospital as inpatient treated with with IV vancomycin initially cultures have been taken of the blood. Plan to treat aggressively with IV fluids for resuscitation also. Tylenol for the fever 2. History of hypertension plan to continue medications potassium a little low plantar plate put him on some oral potassium 3. History of dyslipidemia continue with medications 4. Code status patient desires to be full code
[2018-01-15] MEDS: VANCOMYCIN PER PHARMACY 1 REQUEST MISC (20:45)
[2018-01-15] MEDS: SODIUM CHLORIDE 0.9% 1,000 ML 100 ML IV (20:45)
[2018-01-15] MEDS: MAG HYDROX/ALUM/SIMETH 30 ML UDC PO (21:04)
[2018-01-15 22:48] LABS: Reflexed Lactate in 2 Hours Y
[2018-01-15 23:27] LABS: Lactate 2HR (Lactic Acid Rflx) 0.8 mmol/L (0.7-2.1)
[2018-01-16] VITALS (9 sets, daily range): BP systolic 114–149; BP diastolic 59–91; PULSE 77–87; RESP 16–20; TEMP 36.7–37.3; O2SAT 91–100
[2018-01-16] MEDS: VANCOMYCIN 1,250 MG in SODIUM CHLORIDE 0.9% 250 ML IV ×2 (05:31→18:00)
[2018-01-16 06:16] LABS: Add Manual Diff / Slide Review NO; Basophils Percent Auto 0.3 % (0-2); Eosinophils Percent Auto 0.2 % (2-4); Hematocrit 37.4 % (41-53); Hemoglobin 13.2 g/dL (13.5-17.5); Lymphocytes Percent Auto 5.5 % (25-40); Mean Corpuscular HGB Conc 35.2 % (30-36); Mean Corpuscular Hemoglobin 33.5 PG (26-34); Monocytes Percent Auto 7.1 % (3-14); Neutrophils Absolute Auto 9400 /uL (3000-5900); Neutrophils Percent Auto 86.9 % (50-75); Platelet Count 168 X10^3/uL (150-400); Red Blood Cell Count 3.93 X10^6/uL (4.5-5.9); Red Cell Distribution Width 12.4 % (11.6-14.8); White Blood Cell Count 10.8 X10^3/uL (4.5-11.0)
[2018-01-16 06:26] LABS: Alanine Aminotransferase 60 IU/L (21-72); Albumin 3.5 g/dL (3.5-5.0); Albumin Globulin Ratio 1.3 (1.0-2.8); Alkaline Phosphatase 52 U/L (38-126); Aspartate Aminotransferase 41 IU/L (17-59); Bilirubin Total 0.6 mg/dL (0.2-1.3); Blood Urea Nitrogen 19 mg/dL (9-20); Calcium 7.9 mg/dL (8.4-10.2); Carbon Dioxide 24 mmol/L (22-32); Chloride 102 mmol/L (98-107); Estimated Glomerular Filt Rate > 60.0 mL/min (>60); Globulin 2.8 g/dL (1.7-4.1); Glucose 85 mg/dL (70-100); HEMOLYSIS < 15 (0-50); Potassium 3.4 mmol/L (3.4-5.1); Sodium 139 mmol/L (137-145); Total Protein 6.3 g/dL (6.3-8.2)
[2018-01-16] MEDS: MAG HYDROX/ALUM/SIMETH 30 ML UDC PO (08:13)
[2018-01-16] MEDS: SODIUM CHLORIDE 0.9% 1,000 ML 100 ML IV (08:17)
[2018-01-16] MEDS: POTASSIUM CHLORIDE 20 MEQ TAB PO (09:37)
[2018-01-16] MEDS: ATORVASTATIN 20 MG TABLET 40 MG PO (09:37)
[2018-01-16] MEDS: ENOXAPARIN 40 MG/0.4 ML SYRINGE SUBCUT (09:39)
[2018-01-16] MEDS: hydroCHLOROthiazide 25 MG TABLET PO (09:42)
[2018-01-16] MEDS: LISINOPRIL 5 MG TABLET PO (09:46)
[2018-01-16] MEDS: BACLOFEN 10 MG TABLET PO ×2 (12:45→20:30)
--- NOTE | 2018-01-16 15:50 | P.PN_ITS ---
Subjective Date Patient Seen: 01/16/18 Interval history: Patient feels better with less rigors since admission last night. He feels redness of left leg is about the same. He is complaining of hiccups and acid reflux. Exam Vital Signs (past 8 hours): - 01/16/18 08:00 01/16/18 09:46 01/16/18 12:59 Temperature 98.7 F 98.8 F Pulse Rate 79 83 87 Respiratory Rate 18 20 Blood Pressure 144/91 H 149/86 H 146/84 H Pulse Oximetry 95 100 Oxygen Delivery Method Room Air Oxygen Flow Rate 0 Narrative Exam Narrative: General: Alert, pleasant NAD Lungs: Breathing nonlabored Extremities: There is swelling and macular erythema of the left leg. Blue marker outlining erythema areas of left thigh and lower leg. No weeping or ulcerations. Objective Labs Result Diagrams: 01/16/18 05:30 01/16/18 05:30 Labs: Laboratory Results - last 24 hr 01/15/18 01/15/18 01/15/18 16:10 16:10 16:10 WBC 14.4 H RBC 4.61 Hgb 15.4 Hct 43.4 MCV 94.1 MCH 33.4 MCHC 35.5 RDW 12.2 Plt Count 204 Neut % (Auto) 89.3 H Lymph % (Auto) 5.2 L [place] % (Auto) 4.8 Eos % (Auto) 0.3 L Baso % (Auto) 0.4 Neut # (Auto) 11630 H PT 14.3 H INR 1.3 APTT 33 Sodium Potassium Chloride Carbon Dioxide BUN Creatinine Estimated GFR BUN/Creatinine Ratio Glucose Lactate Calcium Total Bilirubin AST ALT Alkaline Phosphatase Total Protein Albumin Globulin Albumin/Globulin Ratio Procalcitonin 39.72 H Urine RBC Urine WBC Ur Squamous Epith Cells Urine Bacteria Ur Culture Indicated? Micro UA Comment 01/15/18 01/15/18 01/15/18 16:10 16:10 16:31 WBC RBC Hgb Hct MCV MCH MCHC RDW Plt Count Neut % (Auto) Lymph % (Auto) [place] % (Auto) Eos % (Auto) Baso % (Auto) Neut # (Auto) PT INR APTT Sodium 130 L Potassium 3.3 L Chloride 93 L Carbon Dioxide 20 L BUN 27 H Creatinine 1.20 Estimated GFR > 60.0 BUN/Creatinine Ratio 22.5 H Glucose 103 H Lactate 2.2 H Calcium 9.3 Total Bilirubin 1.4 H AST 64 H ALT 74 H Alkaline Phosphatase 67 Total Protein 7.9 Albumin 4.5 Globulin 3.4 Albumin/Globulin Ratio 1.3 Procalcitonin Urine RBC None seen Urine WBC 0-1/hpf Ur Squamous Epith Cells 0-1 /hpf Urine Bacteria None seen Ur Culture Indicated? Cult not indicated Micro UA Comment Not Reportable 01/15/18 01/15/18 01/16/18 18:42 23:10 05:30 WBC 10.8 RBC 3.93 L Hgb 13.2 L Hct 37.4 L MCV 95.0 MCH 33.5 MCHC 35.2 RDW 12.4 Plt Count 168 Neut % (Auto) 86.9 H Lymph % (Auto) 5.5 L [place] % (Auto) 7.1 Eos % (Auto) 0.2 L Baso % (Auto) 0.3 Neut # (Auto) 9400 H PT INR APTT Sodium Potassium Chloride Carbon Dioxide BUN Creatinine Estimated GFR BUN/Creatinine Ratio Glucose Lactate 2.2 H 0.8 Calcium Total Bilirubin AST ALT Alkaline Phosphatase Total Protein Albumin Globulin Albumin/Globulin Ratio Procalcitonin Urine RBC Urine WBC Ur Squamous Epith Cells Urine Bacteria Ur Culture Indicated? Micro UA Comment 01/16/18 05:30 WBC RBC Hgb Hct MCV MCH MCHC RDW Plt Count Neut % (Auto) Lymph % (Auto) [place] % (Auto) Eos % (Auto) Baso % (Auto) Neut # (Auto) PT INR APTT Sodium 139 Potassium 3.4 Chloride 102 Carbon Dioxide 24 BUN 19 Creatinine 1.00 Estimated GFR > 60.0 BUN/Creatinine Ratio 19.0 Glucose 85 Lactate Calcium 7.9 L Total Bilirubin 0.6 AST 41 ALT 60 Alkaline Phosphatase 52 Total Protein 6.3 Albumin 3.5 Globulin 2.8 Albumin/Globulin Ratio 1.3 Procalcitonin Urine RBC Urine WBC Ur Squamous Epith Cells Urine Bacteria Ur Culture Indicated? Micro UA Comment Assessment & Plan Plan: Assessment/Plan Narrative: 1. Left leg cellulitis: Erythema about the same. Continue vancomycin IV. Follow clinical response. 2. Sepsis: Resolving. WBC, lactic acid improving. Afebrile. Cultures negative to date. 3. Hypertension: BP mildly elevated. Continue lisinopril and HCTZ per home routine. 4. Mild hypokalemia: Continue KCl 20 mEq daily started this admission. 5. Alcohol dependency: Patient reports consumption of 1 bottle wine a day in addition to unspecified amounts of hard liquor multiple days a week. He denies history of EtOH withdrawal. Counseled as to need to significantly lower his alcohol consumption. Monitoring for withdrawal.
[2018-01-16] MEDS: SODIUM CHLORIDE 0.9% FLUSH 10 ML IV (20:30)
[2018-01-17] VITALS (8 sets, daily range): BP systolic 141–154; BP diastolic 74–95; PULSE 75–84; RESP 17–20; TEMP 36.6–36.7; O2SAT 96–100
[2018-01-17 06:34] LABS: Vancomycin Trough 7.7 ug/mL (10-20)
[2018-01-17] MEDS: SODIUM CHLORIDE 0.9% FLUSH 10 ML IV ×3 (07:16→20:25)
[2018-01-17] MEDS: VANCOMYCIN 1,250 MG in SODIUM CHLORIDE 0.9% 250 ML IV (07:17)
[2018-01-17] MEDS: LISINOPRIL 5 MG TABLET PO ×2 (09:41→13:32)
[2018-01-17] MEDS: ATORVASTATIN 20 MG TABLET 40 MG PO (09:42)
[2018-01-17] MEDS: POTASSIUM CHLORIDE 20 MEQ TAB PO (09:43)
[2018-01-17] MEDS: hydroCHLOROthiazide 25 MG TABLET PO (09:44)
[2018-01-17] MEDS: ENOXAPARIN 40 MG/0.4 ML SYRINGE SUBCUT (09:44)
--- NOTE | 2018-01-17 10:11 | PC.NURSE ---
Assumed pt care at 0700. Pt is a/o x3, no c/o pain at this time. Left lower extremity warm to touch, Vancomycin running in left peripheral. L upper IV removed, site was compromised. Pt ambulating independently in room. Bed in lowest, locked position and call light within reach. Care continues.
--- NOTE | 2018-01-17 11:40 | PM.PN.1 ---
Subjective Date Patient Seen: 01/17/18 Time Patient Seen: 10:45 Interval history: Patient denies fever chills or sweats. The erythema on the left leg seemed to be improving. He no longer has pain in the left groin. Exam Vital Signs (past 8 hours): - 01/17/18 06:02 01/17/18 07:47 01/17/18 07:50 Temperature 98.0 F 97.8 F Pulse Rate 75 78 Respiratory Rate 17 20 Blood Pressure 154/88 H 144/86 H Pulse Oximetry 100 97 96 01/17/18 09:41 01/17/18 11:09 Temperature 98 F Pulse Rate 84 76 Respiratory Rate 18 Blood Pressure 153/86 H 148/90 H Pulse Oximetry 97 Oxygen Delivery Method Room Air Oxygen Flow Rate 0 Narrative Exam Narrative: General: Alert, pleasant NAD Lungs: Breathing nonlabored Heart: Regular rhythm, no murmur appreciated Extremities: There is swelling and macular erythema of the left leg, mostly in the left lower leg and left medial thigh. The erythema seemed to have decreased compared to the previous blue marker marking. No weeping or ulcerations. Objective Labs Result Diagrams: 01/16/18 05:30 01/16/18 05:30 Labs: Laboratory Results - last 24 hr 01/17/18 05:33 Vancomycin Trough 7.7 L Assessment & Plan Plan: Assessment/Plan Narrative: 1. Left leg cellulitis: Clinically improving Continue vancomycin IV. Add IV Levaquin for gram-negative coverage 2. Sepsis: Resolving. WBC, lactic acid improving. Afebrile. Cultures negative to date. 3. Hypertension: BP mildly elevated. Continue hydrochlorothiazide 25 mg daily. Increase lisinopril from 5 mg daily to 10 mg daily. 4. Mild hypokalemia: Continue KCl 20 mEq daily started this admission. Recheck electrolytes in the morning 5. Alcohol dependency: Patient reports consumption of 1 bottle wine a day in addition to unspecified amounts of hard liquor multiple days a week. He denies history of EtOH withdrawal. Counseled as to need to significantly lower his alcohol consumption. Monitoring for withdrawal.
--- NOTE | 2018-01-17 13:22 | CM.DPC ---
Discharge Planning/Care Management Document 01/17/18 13:21 (Rec: 01/17/18 13:22 [id number]) Discharge Planning Assessment Assigned Workers Compensation Attorney TODD Verma Contact Information Miley Rodriguez # [phone] Advance Directives? No History Provided By Patient Medical Record Has Patient been admitted in last 30 No days? Prior Living Arrangements House Household Members significant other none Type of transporation used prior to Drives own vehicle admit Independent with ADL's Yes Is patient alert and oriented? Yes Barriers to Discharge No Discharge Plan Home Transportation Arrangement Patient has transport home when medically stable. Additional Comment At this time there are no anticipated d/c planning needs . However, will continue to follow. Whiteboard Updated in Patient Room with Yes name and ext. # of Workers Compensation Attorney Comment Primary payor is 1)[facility]. PCP is Dr. Mao in [place]. Patient resides on [facility] for half the year and [place] the other half. Patient hopes to return to [place] around 15. Patient currently on IV abx for cellulitis. It is anticipated that patient will switch to po prior to admit. SW to follow. Review Status In Process Please Provide Date Initial DC 01/16/18 Assessment Was Performed Next Review Type Continued Stay Review
[2018-01-17] MEDS: levoFLOXacin 500 MG/100 ML PIGGYBACK 100 MG IV (13:32)
[2018-01-17] MEDS: PANTOPRAZOLE 40 MG VIAL IV (13:32)
[2018-01-17] MEDS: VANCOMYCIN 1,000 MG/200 ML FROZ.PIGGY 200 MG IV (17:42)
[2018-01-18 00:35] VITALS: BP 144/83; PULSE 72; RESP 18; TEMP 36.8; O2SAT 99
[2018-01-18 00:49] VITALS: O2SAT 99
[2018-01-18] MEDS: VANCOMYCIN 1,000 MG/200 ML FROZ.PIGGY 200 MG IV ×2 (02:14→08:55)
[2018-01-18 05:31] VITALS: BP 116/63; PULSE 68; RESP 18; TEMP 36.7; O2SAT 96
[2018-01-18 06:35] LABS: Add Manual Diff / Slide Review NO; Basophils Percent Auto 0.5 % (0-2); Eosinophils Percent Auto 1.3 % (2-4); Hemoglobin 13.7 g/dL (13.5-17.5); Lymphocytes Percent Auto 13.3 % (25-40); Mean Corpuscular Volume 94.5 fL (80-100); Neutrophils Absolute Auto 5400 /uL (3000-5900); Neutrophils Percent Auto 71.9 % (50-75); Platelet Count 223 X10^3/uL (150-400); Red Blood Cell Count 4.02 X10^6/uL (4.5-5.9); Red Cell Distribution Width 12.5 % (11.6-14.8); White Blood Cell Count 7.5 X10^3/uL (4.5-11.0)
[2018-01-18 06:43] LABS: Blood Urea Nitrogen 14 mg/dL (9-20); Carbon Dioxide 29 mmol/L (22-32); Chloride 98 mmol/L (98-107); Estimated Glomerular Filt Rate > 60.0 mL/min (>60); Glucose 103 mg/dL (70-100); HEMOLYSIS < 15 (0-50); Sodium 139 mmol/L (137-145)
[2018-01-18 07:40] VITALS: BP 132/61; PULSE 77; RESP 20; TEMP 36.7; O2SAT 99
[2018-01-18] MEDS: POTASSIUM CHLORIDE 20 MEQ TAB PO (08:47)
[2018-01-18 08:48] VITALS: BP 132/61
[2018-01-18] MEDS: hydroCHLOROthiazide 25 MG TABLET PO (08:48)
[2018-01-18] MEDS: ENOXAPARIN 40 MG/0.4 ML SYRINGE SUBCUT (08:48)
[2018-01-18] MEDS: LISINOPRIL 10 MG TABLET PO (08:48)
[2018-01-18] MEDS: PANTOPRAZOLE 40 MG VIAL IV (08:49)
[2018-01-18] MEDS: SODIUM CHLORIDE 0.9% FLUSH 10 ML IV (08:49)
[2018-01-18] MEDS: ATORVASTATIN 20 MG TABLET 40 MG PO (08:49)
[2018-01-18 09:00] VITALS: O2SAT 99
--- NOTE | 2018-01-18 09:14 | P.DS_ITS ---
History of Present Illness Date Patient Seen: 01/18/18 Time Patient Seen: 09:11 Chief complaint: has Mykel, gregoryple complaints Narrative: This is a 58-year-old male presents with 2 day history of red swollen left leg accompanied by fever chills rigors. Symptoms started on Sunday and the cellulitis has progressed he has been taking some oral antibiotic at home that his spouse gave him that she used previously. This has not helped the infections gotten worse. He does have a previous history of similar presentation several years ago. Discharge Providers Date of admission: 01/15/18 19:47 Discharge provider: Daniel Mei MD Discharge Date: 01/18/18 Summary Discharge Diagnosis: One. Cellulitis left lower extremity having failed outpatient treatment 2. Hypertension 3. Hypokalemia Hospital Course: Patient presented to the hospital with fever elevated white count and progressive cellulitis left lower extremity despite outpatient treatment. He was treated with IV antibiotics and IV fluids he has improved cultures were negative. He had been on vancomycin. We will he will be discharged home on oral clindamycin. Follow up with Dr. mercedes Status at Discharge Cognitive/behavioral status at discharge: Baseline Functional status at discharge: independent ambulation Overall status at discharge: patient is back to baseline Time Spent with Patient Greater than 30 minutes Exam Vital Signs (past 8 hours): - 01/18/18 05:31 01/18/18 07:40 01/18/18 08:48 Temperature 98.0 F 98.0 F Pulse Rate 68 77 Respiratory Rate 18 20 Blood Pressure 116/63 132/61 132/61 Pulse Oximetry 96 99 Oxygen Delivery Method Room Air Oxygen Flow Rate 0 Narrative Exam Narrative: The left lower extremity still mildly edematous from the ankle up to the knee still mildly erythematous and much improved from previous Objective Labs Result Diagrams: 01/18/18 06:09 01/18/18 06:09 Labs: Laboratory Results - last 24 hr 01/18/18 01/18/18 06:09 06:09 WBC 7.5 RBC 4.02 L Hgb 13.7 Hct 38.0 L MCV 94.5 MCH 34.0 MCHC 36.0 RDW 12.5 Plt Count 223 Neut % (Auto) 71.9 Lymph % (Auto) 13.3 L [place] % (Auto) 13.0 Eos % (Auto) 1.3 L Baso % (Auto) 0.5 Neut # (Auto) 5400 Sodium 139 Potassium 4.0 Chloride 98 Carbon Dioxide 29 BUN 14 Creatinine 1.00 Estimated GFR > 60.0 BUN/Creatinine Ratio 14.0 Glucose 103 H Calcium 9.0 Discharge Plan Discharge Plan Patient Disposition: Home Discharge comment: Follow up with Dr. Mercedes Next week. [phone] Discharge Med Rec/Prescriptions Prescriptions: New clindamycin HCl 300 mg capsule 300 mg PO Q6H 7 Days Qty: 28 RF: 0 Continue hydrochlorothiazide 25 mg tablet 25 mg PO DAILY Qty: 60 RF: 0 atorvastatin 40 mg tablet 40 mg PO DAILY RF: 0 lisinopril 5 mg tablet 5 mg PO DAILY RF: 0 Discontinued cephalexin 1 dose PO QID RF: 0 Follow up/Referrals: Cecy Mercedes MD [Physician] - 1 Week (follow up cellulitis) Provider Discharge Instructions Diet: Diet as Tolerated Activity: elevate leg Discharge Data Attending Provider: Daniel Mei Admit Date/Time: 01/15/18 19:47
[2018-01-18] MEDS: CLINDAMYCIN 150 MG CAPSULE 300 MG PO (10:11)
[2018-01-18] MEDS: levoFLOXacin 500 MG/100 ML PIGGYBACK 100 MG IV (10:12)
[2018-01-18] MEDS: INFLUENZA VACCINE 0.5 ML SYRINGE IM (11:06)
--- NOTE | 2018-01-18 12:08 | PC.NURSE ---
Pt dressed and ready for discharge home. IV removed. Flu shot given to left deltoid per request. Reviewed d/c information, discussed d/c meds, time of last dose and follow up. Reviewed stroke education. Pt out via w/c by [employer] to pov with S.O. and all belongings.
--- NOTE | 2018-01-18 12:08 | CM.DPC ---
DCP/Discharge Patient to discharge home today on oral abx. Met with patient: patient agreeable to discharge and has no concerns. Patient has a friend coming to transport. No needs at this time. Plan: Patient to discharge home today via pov.
== END 2018-01-18 12:10 | disposition home or self-care (01) | DRG 603 ==
LOC: ED 19:03 → AC 19:48
PROVIDERS: Emergency Medicine; Internal Medicine; Admitting Provider Internal Medicine; Emergency Provider Emergency Medicine; Visit Provider Internal Medicine
DX: L03.116 Cellulitis of left lower limb (principal); E80.6 Other disorders of bilirubin metabolism; I10 Essential (primary) hypertension; E78.5 Hyperlipidemia, unspecified; K21.9 Gastro-esophageal reflux disease without esophagitis; R06.6 Hiccough; E87.6 Hypokalemia; F10.20 Alcohol dependence, uncomplicated
CPT/HCPCS: 36415; 36591; 71045; 80048; 80053; 80202; 81003; 81015; 83605; 84145; 85025; 85610; 85730; 87040; 90471; 90656; 93971; 96361; 96365; 96366; 96367; 96375; 99285; C9113; J1650; J1956; J2060; J2543; J3370; Q2038

== ENCOUNTER 2018-07-28 15:16 | Emergency (ER) | payer OTHER, SELFPAY ==
[2018-01-15 20:40] VITALS: BMI 32.5
[2018-07-28 15:18] VITALS: BP 103/62; PULSE 125; RESP 22; TEMP 37.6; O2SAT 95
--- NOTE | 2018-07-28 15:48 | ED.FEVER ---
HPI - Fever General Chief Complaint: Fever Stated Complaint: thinks he has an infection Time Seen by Provider: 07/28/18 15:30 Source: patient Mode of arrival: ambulatory Limitations: no limitations History of Present Illness HPI Narrative: Patient is a 58-year-old male left lower biggs aching and redness. He has had cellulitis of this left leg at least 8 times he was hospitalized in January 2018 for the same. He says this started today. He was shaking and feeling feverish of the forearm arrival he took 800 mg of ibuprofen he thinks that has helped. He denies any cough shortness of breath no abdominal pain nausea vomiting or painful urination. This is similar to all previous presentations he has had past. He has lymphedema in his left leg, wears compression socks. He feels pain and swelling in his left groin. MD complaint: fever Temperature Source: subjective Relieving factors: nothing Exacerbating factors: nothing Related Data Home Medications Medication Instructions Recorded Confirmed atorvastatin 40 mg PO DAILY 01/15/18 01/15/18 lisinopril 5 mg PO DAILY 01/15/18 01/15/18 Previous Rx's Medication Instructions Recorded hydrochlorothiazide 25 mg tablet 25 mg PO DAILY #60 tab 10/02/17 cephalexin [Keflex] 500 mg PO TID #21 cap 07/28/18 sulfamethoxazole-trimethoprim 1 tab PO BID 7 Days #14 tab 07/28/18 [Bactrim DS] Allergies Allergy/AdvReac Type Severity Reaction Status Date / Time No Known Drug Allergies Allergy Verified 01/15/18 14:35 Review of Systems Review of Systems ROS Unobtainable: All systems reviewed & are unremarkable except as noted in HPI and below Constitutional Reports body ache(s) and Reports fever(s) Eyes Denies change in vision, Denies eye discharge, Denies irritation and Denies loss of vision ENT Ears, Nose, Mouth, and Throat: Denies change in voice, Denies neck pain and Denies sore throat Cardiovascular Denies chest pain, Denies irregular heart rhythm, Denies lightheadedness, Denies palpitations, Denies dyspnea, Denies dyspnea on exertion and Denies orthopnea Respiratory Denies cough, Denies dyspnea, Denies dyspnea on exertion and Denies wheezing Gastrointestinal Gastrointestinal: Denies abdominal pain, Denies change in bowel habits, Denies diarrhea, Denies nausea and Denies vomiting Genitourinary Denies hematuria, Denies flank pain, Denies urinary incontinence and Denies urinary urgency Musculoskeletal Denies neck pain Integumentary/Breasts Reports as per HPI Neurologic Denies confusion and Denies loss of vision Psychiatric Denies anxiety, Denies confusion, Denies depression, Denies homicidal ideation and Denies suicidal ideation Endocrine Denies palpitations Allergic/Immunologic Denies wheezing [facility] Medical History Dyslipidemia (Acute) Hypertension (Acute) Surgical History History of tonsillectomy (Acute) Social History (Updated 01/15/18 @ 15:54 by Elise Gruber DO) household members: significant other and none Smoking Status: Never smoker alcohol intake: current Social History household members: significant other and none Smoking Status: Never smoker alcohol intake: current Exam Initial Vital Signs Initial Vital Signs: Vital Signs Temperature 99.6 F 07/28/18 15:18 Pulse Rate 125 H 07/28/18 15:18 Respiratory Rate 22 07/28/18 15:18 Blood Pressure 103/62 07/28/18 15:18 Pulse Oximetry 95 07/28/18 15:18 GENERAL: Well-appearing, well-nourished and in no acute distress. HEENT: Head atraumatic,EOMI, pupils reactive CARDIOVASCULAR: Regular rate and rhythm without murmurs, rubs or gallops. RESPIRATORY: Breath sounds equal bilaterally, no wheezes rales or rhonchi. ABDOMEN: Soft, nontender. Normoactive bowel sounds all 4 quadrants. No guarding or rebound. EXTREMITIES: Normal range of motion, no clubbing or edema. Neurovascularly intact NEUROLOGICAL: Alert and oriented x4.Normal gait and speech. Cranial nerves II through XII grossly intact. SKIN: Erythema left medial thigh. It does not extend into the groin there is a sharp and. Actually looks like it starts at the r posterior knee Course Orders Ordered: ED Orders 07/28/18 15:50 Complete Blood Count AUTO DIFF Stat Comprehensive Metabolic Panel Stat Lactate (Lactic Acid) Stat 07/28/18 16:20 Blood Culture Stat Discontinued Medications Sodium Chloride (Normal Saline 0.9%) 1,000 mls @ 1,000 mls/hr IV BOLUS ONE Stop: 07/28/18 16:24 Last Infusion: 07/28/18 16:55 Dose: 0 mls/hr Admin: 07/28/18 15:52 Dose: 1,000 mls/hr Vital Signs - 8 hr 07/28/18 15:18 07/28/18 16:30 Temperature 99.6 F 98.8 F Pulse Rate 125 H 106 H Respiratory Rate 22 16 Blood Pressure 103/62 Blood Pressure [Right Arm] 103/48 L Pulse Oximetry 95 97 MDM - Fever Lab Data Attestation: I reviewed the patient's lab results. Result diagrams: 07/28/18 15:50 07/28/18 15:50 Lab Results 07/28/18 07/28/18 07/28/18 Range/Units 15:50 15:50 15:50 WBC 8.1 (4.5-11.0) X10^3/uL RBC 4.43 L (4.5-5.9) X10^6/uL Hgb 14.7 (13.5-17.5) g/dL Hct 42.6 (41-53) % MCV 96.1 (80-100) fL MCH 33.3 (26-34) PG MCHC 34.6 (30-36) % RDW 12.9 (11.6-14.8) % Plt Count 184 (150-400) X10^3/uL Neut % (Auto) 95.4 H (50-75) % Lymph % (Auto) 2.4 L (25-40) % [place] % (Auto) 1.8 L (3-14) % Eos % (Auto) 0.2 L (2-4) % Baso % (Auto) 0.2 (0-2) % Neut # (Auto) 7800 H (0792-6739) /uL Lymph # (Auto) 200 L (7011-5972) /uL [place] # (Auto) 100 (0-900) /uL Eos # (Auto) 0 (0-450) /uL Baso # (Auto) 0 (0-100) /uL Sodium 134 L (137-145) mmol/L Potassium 3.9 (3.4-5.1) mmol/L Chloride 99 (98-107) mmol/L Carbon Dioxide 23 (22-32) mmol/L BUN 21 H (9-20) mg/dL Creatinine 1.30 H (0.66-1.25) mg/dL Estimated GFR 56.7 L (>60) mL/min BUN/Creatinine Ratio 16.2 (6-22) Glucose 92 (70-100) mg/dL Lactate 1.9 (0.7-2.1) mmol/L Calcium 9.7 (8.4-10.2) mg/dL Total Bilirubin 0.9 (0.2-1.3) mg/dL AST 50 (17-59) IU/L ALT 75 H (21-72) IU/L Alkaline Phosphatase 67 (38-126) U/L Total Protein 7.4 (6.3-8.2) g/dL Albumin 4.6 (3.5-5.0) g/dL Globulin 2.8 (1.7-4.1) g/dL Albumin/Globulin Ratio 1.6 (1.0-2.8) MDM Narrative Medical decision making narrative: Patient's symptoms started today. He is afebrile now does not appear septic. Normal lactic acid and no leukocytosis. At this time patient will be covered for MRSA and strep with Bactrim and Keflex. He has been through this many times and knows when it is worsening. At this time I feel comfortable discharging patient home and he agrees to follow up as needed. Discharge Plan Departure Patient Disposition: Home Clinical Impression: Cellulitis of left leg Discharge Date/Time: 07/28/18 17:01 Interventions: ED Discharge Assessment Last Done: 07/28/18 17:00 Instructions: DI for Cellulitis -- Adult Activity Restrictions/Additional Instructions: *You have been diagnosed with cellulitis left leg *What to do: Rest, increase fluid, monitor redness *Continue to take medications as directed--Sent to [facility] in [place] Bactrim 1 tablet twice a day for 7 days Keflex 500 mg 3 times a day for 7 days *Follow up with your primary care provider in 2-3 days *Return to ER if you should have worsening redness, pain, inability take antibiotic or any new, worsening or concerning symptoms Prescriptions: New sulfamethoxazole-trimethoprim [Bactrim DS] 800-160 mg tablet 1 tab PO BID 7 Days Qty: 14 RF: 0 cephalexin [Keflex] 500 mg capsule 500 mg PO TID Qty: 21 RF: 0 No Action hydrochlorothiazide 25 mg tablet 25 mg PO DAILY Qty: 60 RF: 0 atorvastatin 40 mg tablet 40 mg PO DAILY RF: 0 lisinopril 5 mg tablet 5 mg PO DAILY RF: 0 Referrals: [facility] [Outside]
[2018-07-28] MEDS: SODIUM CHLORIDE 0.9% 1,000 ML 1000 ML IV (15:52)
[2018-07-28 16:06] LABS: Add Manual Diff / Slide Review NO; Basophils Absolute Auto 0 /uL (0-100); Basophils Percent Auto 0.2 % (0-2); Eosinophils Absolute Auto 0 /uL (0-450); Eosinophils Percent Auto 0.2 % (2-4); Hematocrit 42.6 % (41-53); Hemoglobin 14.7 g/dL (13.5-17.5); Lymphocytes Absolute Auto 200 /uL (1100-4500); Lymphocytes Percent Auto 2.4 % (25-40); Mean Corpuscular HGB Conc 34.6 % (30-36); Mean Corpuscular Hemoglobin 33.3 PG (26-34); Mean Corpuscular Volume 96.1 fL (80-100); Monocytes Absolute Auto 100 /uL (0-900); Monocytes Percent Auto 1.8 % (3-14); Neutrophils Absolute Auto 7800 /uL (1500-7000); Neutrophils Percent Auto 95.4 % (50-75); Platelet Count 184 X10^3/uL (150-400); Red Blood Cell Count 4.43 X10^6/uL (4.5-5.9); Red Cell Distribution Width 12.9 % (11.6-14.8); White Blood Cell Count 8.1 X10^3/uL (4.5-11.0)
[2018-07-28 16:15] LABS: Alanine Aminotransferase 75 IU/L (21-72); Albumin 4.6 g/dL (3.5-5.0); Albumin Globulin Ratio 1.6 (1.0-2.8); Alkaline Phosphatase 67 U/L (38-126); Aspartate Aminotransferase 50 IU/L (17-59); BUN Creatinine Ratio 16.2 (6-22); Bilirubin Total 0.9 mg/dL (0.2-1.3); Blood Urea Nitrogen 21 mg/dL (9-20); Calcium 9.7 mg/dL (8.4-10.2); Carbon Dioxide 23 mmol/L (22-32); Chloride 99 mmol/L (98-107); Estimated Glomerular Filt Rate 56.7 mL/min (>60); Globulin 2.8 g/dL (1.7-4.1); Glucose 92 mg/dL (70-100); HEMOLYSIS < 15 (0-50); Lactate (Lactic Acid) 1.9 mmol/L (0.7-2.1); Potassium 3.9 mmol/L (3.4-5.1); Sodium 134 mmol/L (137-145); Total Protein 7.4 g/dL (6.3-8.2)
[2018-07-28 16:30] VITALS: BP 103/48; PULSE 106; RESP 16; TEMP 37.1; O2SAT 97
== END 2018-07-28 17:01 | disposition home or self-care (01) ==
PROVIDERS: Nurse Practitioner Family; Emergency Provider Emergency Medicine
DX: L03.116 Cellulitis of left lower limb (principal)
CPT/HCPCS: 36415; 36591; 80053; 83605; 85025; 87040; 96360; 99283